=== PATIENT | female | born 1970 | race Asian ===

== ENCOUNTER → 2018-04-11 | Outpatient (CLI) | payer OTHER ==
[~2018-04-11] MED LIST: HYDR-3104 PO; KET10 PO; NO ROUTINE MEDS; PER PO
[2018-04-11 09:47] LABS: LDL CHOLESTEROL 98 mg/dl
== END ==
LOC: LAB 08:04
PROVIDERS: ATTEND Family Medicine
DX: Z00.00 Encounter for general adult medical examination without abnormal findings (principal)
CPT/HCPCS: 36415; 82040; 82247; 82310; 82374; 82435; 82465; 82565; 82947; 83718; 84075; 84132; 84155; 84295; 84443; 84450; 84460; 84478; 84520; 85027